=== PATIENT | female | born 1995 | race Caucasian/White ===

== ENCOUNTER 2019-03-28 04:45 | Emergency (ER) | payer MEDICAID, OTHER ==
[~2019-03-28] VITALS: Ht 154.9 cm; Wt 77.1 kg
[2019-03-28 04:45] VITALS: BP 124/81
[~2019-03-28 04:45] MED LIST: CLIN1GEL22 TP; PREN-385 PO; [UNRECOGNIZED DRUG - CODE] PO; [UNRECOGNIZED DRUG - CODE] PO
--- NOTE | 2019-03-28 04:52 | NUR ---
PT AMBULATED TO ER BED 7
--- NOTE | 2019-03-28 05:00 | NUR ---
23 Y/O F BIB SELF WITH C/O FEVER AND LOWER BACK PAIN X2 DAYS.7/10 PAIN, ACHING. FEVER ASSOCIATED WITH NAUSEA/VOMITTING, APPETITE CHANGES, AND CHILLS. PER PT "MY FEVER HAS BEEN RANGING FROM 99-102 DEGREEES AT THE HIGHEST." PT SELF MEDICATED WITH TYLENOL YESTERDAY AT 1400. VOMITTED X3 YESTERDAY. +NON-PRODUCTIVE COUGH. BILATERAL LUNG FLORIAN CLEAR. SKIN NORMAL PER ETHNICITY. ERMD NOTIFIED OF PT STATUS. WILL CONTINUE TO MONITOR.
[2019-03-28 05:05] VITALS: BP 124/81
[2019-03-28] MEDS ORDERED: IBUPROFEN 600 MG TAB PO ONE (05:05)
[2019-03-28] MEDS ORDERED: NACL 0.9% 1,000 ML IV ONE (05:20)
[2019-03-28] MEDS ORDERED: cefTRIAXone 1,000 MG VIAL ONE ×2 (05:37)
[2019-03-28 06:17] LABS: BILIRUBIN,URINE NEGATIVE (NEGATIVE); BLOOD, URINE 3+ (NEGATIVE); COLOR,URINE YELLOW (YELLOW); LEUKOCYTE ESTERASE ,URINE NEGATIVE (NEGATIVE); NITRITE, URINE NEGATIVE (NEGATIVE); PH,URINE 7.5 (5.0-9.0); UGLUCOSE NEGATIVE (NEGATIVE)
[2019-03-28 06:26] LABS: ANION GAP 14.9 (8-16); CARBON DIOXIDE 25.9 mmol/L (21-32); CREATININE 0.9 mg/dL (0.6-1.3); POTASSIUM 3.8 mmol/L (3.5-5.1); TOTAL BILIRUBIN 0.3 mg/dL (0.0-1.0)
--- NOTE | 2019-03-28 06:30 | NUR ---
PT STATED SHE IS FEELING BETTER AFTER FLUIDS. DR. SUAZO MADE AWARE.
[2019-03-28 06:31] LABS: BASOPHILS % (AUTO) 0.2 % (0.0-2.0); EOSINOPHILS % (AUTO) 0.1 % (0.0-4.0); HEMATOCRIT 39.7 % (36-48); HEMOGLOBIN 13.2 g/dL (12.0-16.0); LYMPHOCYTES # (AUTO) 0.6 K/uL (2.5-16.5); MEAN CORPUSCULAR HEMOGLOBIN 29 pg (27-31); MEAN CORPUSCULAR HGB CONC 33 g/dL (33-37); MEAN CORPUSCULAR VOLUME 88.3 fL (80-94); MONOCYTES # (AUTO) 0.5 K/uL (0.8-1.0); MONOCYTES % (AUTO) 3.6 % (1.7-9.3); NEUTROPHILS # (AUTO) 13.2 K/uL (1.8-7.7); NEUTROPHILS % (AUTO) 92.1 % (42.2-75.2); PLATELET COUNT (AUTO) 342 K/uL (140-450); RED CELL DISTRIBUTION WIDTH 13.8 % (11.6-13.7)
[2019-03-28 06:37] LABS: WHITE BLOOD COUNT (AUTO) 14.3 K/uL (4.8-10.8)
[2019-03-28 06:57] LABS: APPEARANCE,URINE HAZY (CLEAR)
[2019-03-28 06:58] LABS: RBC,URINE 11-20 (MOD) /HPF (0-5); WBC,URINE 0-5 /HPF (0-5)
--- NOTE | 2019-03-28 07:00 | NUR ---
Patient discharged with v/s stable. Written and verbal after care instructions given and explained. Patient alert, oriented and verbalized understanding of instructions. Ambulatory with steady gait. All questions addressed prior to discharge. ID band removed. Patient advised to follow up with PMD. Rx of cipro and naprosyn given. Patient educated on indication of medication including possible reaction and side effects. Opportunity to ask questions provided and answered.
== END 2019-03-28 07:00 | disposition home or self-care (01) ==
LOC: MED 04:45
DX: N10 Acute pyelonephritis (principal); Z88.1 Allergy status to other antibiotic agents; Z79.899 Other long term (current) drug therapy
CPT/HCPCS: 36415; 80053; 81001; 81025; 82150; 83690; 85025; 96365; 99283; J0696; J7030